=== PATIENT | female | born 1955 | race Caucasian/White ===

== ENCOUNTER → 2017-09-16 11:32 | Outpatient (POV) | payer OTHER, SELFPAY | PROVIDERS: PCP Family Medicine; Visit Provider Internal Medicine | DX: Z00.00 Encounter for general adult medical examination without abnormal findings (principal) ==

== ENCOUNTER → 2017-09-17 14:21 | Outpatient (CLI) | payer OTHER, SELFPAY | PROVIDERS: PCP Family Medicine; Visit Provider Family Medicine | DX: R06.02 Shortness of breath (principal) | CPT/HCPCS: 94618 ==

== ENCOUNTER → 2019-10-29 14:15 | Outpatient (CLI) | payer MEDICARE, SELFPAY ==
--- NOTE | 2019-10-29 14:23 | XR_ITS ---
PROCEDURE: XR CHEST 2V CLINICAL HISTORY: SOB COMPARISON: CXR CHEST(2 VIEWS-NOT PORTABLE) from 09/07/2015 CXR CHEST(2 VIEWS-NOT PORTABLE) from 01/04/2016 CXR CHEST(2 VIEWS-NOT PORTABLE) from 07/02/[address] CHEST W/ CONTRAST from 03/20/2017 FINDINGS: The cardiomediastinal silhouette and pulmonary vascularity are within normal limits. COPD with right apical scarring and pleural thickening. Calcified granuloma is present in the lingula. There is hyperinflation with eventration of the hemidiaphragms. There is a small left pleural effusion. No lobar consolidation or collapse No acute bony abnormalities. IMPRESSION: COPD with chronic changes and small left pleural effusion. Dictated by: Roberto Denis MD 10/29/2019 16:33 Electronically signed by Roberto Denis MD in [place] 10/29/2019 16:33
== END ==
PROVIDERS: PCP Family Medicine; Visit Provider Physician Assistant
DX: R06.02 Shortness of breath (principal)
CPT/HCPCS: 71046